=== PATIENT | female | born 1985 | race Caucasian/White ===

== ENCOUNTER → 2020-04-22 10:15 | Outpatient (CLI) | payer OTHER, SELFPAY ==
[2020-04-29 20:34] LABS: Sequential Screen 1st Trimeste SEE SEPARATE REPORT
== END ==
PROVIDERS: PCP Registered Nurse Diabetes Educator
DX: Z34.81 Encounter for supervision of other normal pregnancy, first trimester (principal); Z3A.12 12 weeks gestation of pregnancy; Z36.0 Encounter for antenatal screening for chromosomal anomalies
CPT/HCPCS: 36415; 84163; 84702

== ENCOUNTER → 2020-05-30 10:04 | Outpatient (CLI) | payer OTHER, SELFPAY | PROVIDERS: PCP Registered Nurse Diabetes Educator; Referring Provider Family Medicine; Visit Provider Family Medicine | DX: Z34.90 Encounter for supervision of normal pregnancy, unspecified, unspecified trimester (principal); Z3A.17 17 weeks gestation of pregnancy | CPT/HCPCS: 36415; 82105; 82677; 84702; 86336 ==

== ENCOUNTER → 2020-06-16 09:20 | Outpatient (CLI) | payer OTHER, SELFPAY ==
--- NOTE | 2020-06-16 09:21 | DI.US.S_ITS ---
PROCEDURE: US OB >= 14 WEEKS FETUS INDICATIONS: ANATOMY SCREENING OUTSIDE/PRIOR DATING DATA: Last menstrual period (LMP): 01/28/20. LMP-based estimated date of delivery (MEGHANA): 11/02/20 . First dating scan (date and location): 04/22/20 . Estimated date of delivery (MEGHANA) from first dating scan: 11/03/20 . TECHNIQUE: Real-time scanning was performed of the fetus, with image documentation and biometric measurements. Endovaginal scanning: Not needed. COMPARISON: None. FINDINGS: General: A single living intrauterine gestation is present. Presentation: Cephalic. Placenta: Placental position is anterior , without previa. Amniotic fluid index: 12.3 cm, normal range is 5-24 cm. heart rate: 155 beats per minute. Maternal cervical canal: 3.9 cm long. Normal lower limit is 2.5 cm. biometrics: Biparietal diameter: 4.7 cm, 20 weeks 1 day Head circumference: 17.7 cm, 20 weeks 1 day Abdominal circumference: 14.4 cm, 19 weeks 5 days Femur length: 3.1 cm, 19 weeks 4 days Estimated gestational age from initial scan: 20 weeks 0 days Composite gestational age from present scan: 19 weeks 6 days Estimated weight and percentile: 309 g, 30th percentile Measurement variability for biometric dating: +/- 7 days from 14 weeks to 15 weeks 6 days gestation, +/- 10 days from 16 weeks to 21 weeks 6 days gestation, +/- 2 weeks from 22 weeks to 27 weeks 6 days gestation, +/- 3 weeks for 28 weeks gestation or later. weight reference: 4500 g or EFW >90/95% is considered macrosomia or large for gestational age. EFW <10% is small for gestational age. EFW 5% or less is considered intra-uterine growth restriction. Anatomic survey: Neuro: Ventricles are non-dilated at less than 10 mm. Cisterna magna is normal at 3-11 mm. Cerebellum is normal in size and morphology. Nuchal skin fold: Normal at less than 6 mm between 14-21 weeks gestational age. Face: Nose and lips, facial profile are normal. Spine: No evidence for spina bifida. Heart: 4-chambered heart is present, with normal ventricular outflow tracts. Diaphragm: Diaphragm is intact. Stomach: Left-sided stomach is present. Kidneys: No hydronephrosis. Normal is less than 5 mm in 2nd trimester, less than 7 mm in 3rd trimester. Cord: 3-vessel cord has orthotopic insertion. Bladder: Normal in size. Extremities: All 4 extremities identified. IMPRESSION: Appropriate interval growth, no anomaly seen. Dictated by: Scott Pineda M.D. on 06/16/2020 at 12:09 Approved by: Scott Pineda M.D. on 06/16/2020 at 12:12
== END ==
PROVIDERS: PCP Registered Nurse Diabetes Educator; Referring Provider Family Medicine; Visit Provider Family Medicine
DX: Z36.89 Encounter for other specified antenatal screening (principal); Z3A.19 19 weeks gestation of pregnancy
CPT/HCPCS: 76811

== ENCOUNTER → 2020-08-05 08:45 | Outpatient (CLI) | payer OTHER, SELFPAY ==
[2020-08-05 12:14] LABS: Hematocrit 32.5 % (36-46)
[2020-08-05 12:46] LABS: GTT (PREG) 1 Hour PP 50gm Dose 105 mg/dL (76-139)
== END ==
PROVIDERS: Family Medicine; PCP Registered Nurse Diabetes Educator; Referring Provider Registered Nurse Diabetes Educator; Visit Provider Family Medicine
DX: Z34.90 Encounter for supervision of normal pregnancy, unspecified, unspecified trimester (principal); Z3A.26 26 weeks gestation of pregnancy
CPT/HCPCS: 36415; 82950; 85014; 85018

== ENCOUNTER → 2020-09-12 11:08 | Outpatient (CLI) | payer OTHER, SELFPAY ==
--- NOTE | 2020-09-12 11:09 | DI.US.S_ITS ---
PROCEDURE: US OB LIMITED INDICATIONS: small for dates, growth and fluid OUTSIDE/PRIOR DATING DATA: Last menstrual period (LMP): 01/28/2020. LMP-based estimated date of delivery (MEGHANA): 11/02/2020. First dating scan (date and location): 04/02/2020 at [facility]. Estimated date of delivery (MEGHANA) from first dating scan: 11/03/2020. TECHNIQUE: Real-time scanning was performed of the fetus, with image documentation and biometric measurements. Biophysical profile was also obtained. Endovaginal scanning: Not performed COMPARISON: [facility], OB >= 14 WEEKS FETUS, 06/16/2020, 9:37. [facility] OB <= 14 WEEKS FETUS, 04/22/2020, 10:00. FINDINGS: General: A single living intrauterine gestation is present. Presentation: Cephalic. Placenta: Placental position is anterior , without previa. Amniotic fluid index: 8.4 cm, normal range is 5-24 cm. heart rate: 137 beats per minute. Maternal cervical canal: 3.9 cm long. Normal lower limit is 2.5 cm. biometrics: Biparietal diameter: 31 weeks 0 day Head circumference: 33 weeks 2 days Abdominal circumference: 30 weeks 5 days Femur length: 3 weeks 4 days Estimated gestational age from initial scan: 32 weeks 4 days. Composite gestational age from present scan: 31 weeks 3 days Estimated weight and percentile: 1663 gm; 6% for gestational age. Measurement variability for biometric dating: +/- 7 days from 14 weeks to 15 weeks 6 days gestation, +/- 10 days from 16 weeks to 21 weeks 6 days gestation, +/- 2 weeks from 22 weeks to 27 weeks 6 days gestation, +/- 3 weeks for 28 weeks gestation or later. weight reference: 4500 g or EFW >90/95% is considered macrosomia or large for gestational age. EFW <10% is small for gestational age. EFW 5% or less is considered intra-uterine growth restriction. IMPRESSION: 1. A single living intrauterine gestation redemonstrated. growth is at the low normal range with the weight at the 6th percentile, concerning for developing growth restriction. Recommend clinical follow-up and imaging follow-up as needed. Dictated by: Martin Lundy M.D. on 09/12/2020 at 13:14 Approved by: Martin Lundy M.D. on 09/12/2020 at 13:20
== END ==
PROVIDERS: PCP Registered Nurse Diabetes Educator; Referring Provider Family Medicine; Visit Provider Family Medicine
DX: Z36.4 Encounter for antenatal screening for fetal growth retardation (principal); Z3A.31 31 weeks gestation of pregnancy
CPT/HCPCS: 76815

== ENCOUNTER → 2020-10-06 14:32 | Outpatient (CLI) | payer OTHER, SELFPAY ==
[2020-10-07 13:49] LABS: Strep Grp B PCR NEG for Grp B Strep
== END ==
PROVIDERS: PCP Registered Nurse Diabetes Educator; Visit Provider Family Medicine
DX: Z36.85 Encounter for antenatal screening for Streptococcus B (principal); Z3A.36 36 weeks gestation of pregnancy
CPT/HCPCS: 87653

== ENCOUNTER → 2020-10-06 14:50 | Outpatient (CLI) | payer OTHER, SELFPAY ==
--- NOTE | 2020-10-06 14:50 | DI.US.S_ITS ---
PROCEDURE: US OB LIMITED INDICATIONS: LOW AMNIOTIC FLUID. WILL NEED INDUCTION IF <5CM. OUTSIDE/PRIOR DATING DATA: Last menstrual period (LMP): 01/28/2020. LMP-based estimated date of delivery (MEGHANA): 11/02/2020. First dating scan (date and location): 04/22/2020 . Estimated date of delivery (MEGHANA) from first dating scan: 11/03/2020. TECHNIQUE: Real-time scanning was performed of the fetus, with image documentation and biometric measurements. Biophysical profile was also obtained. Endovaginal scanning: Multiple COMPARISON: [facility], OB >= 14 WEEKS FETUS, 06/16/2020, 9:37. [facility] OB <= 14 WEEKS FETUS, 04/22/2020, 10:00. [facility] OB LIMITED, 09/12/2020, 11:24. FINDINGS: General: A single living intrauterine gestation is present. Presentation: Cephalic. Placenta: Placental position is anterior , without previa. Amniotic fluid index: 6.5 cm, normal range is 5-24 cm; largest pocket 2.7cm. heart rate: 139 beats per minute. Maternal cervical canal: Not well seen IMPRESSION: 1. A single living intrauterine gestation with an estimated gestational age of 36 weeks 0 day based on initial ultrasound. 2. Amniotic fluid index 6.5 cm with the largest pocket 2.7 cm. 3. Cervix not well seen. Dictated by: Martin Lundy M.D. on 10/06/2020 at 16:38 Approved by: Martin Lundy M.D. on 10/06/2020 at 16:43
== END ==
PROVIDERS: PCP Registered Nurse Diabetes Educator; Referring Provider Family Medicine; Visit Provider Family Medicine
DX: O28.8 Other abnormal findings on antenatal screening of mother (principal); Z3A.36 36 weeks gestation of pregnancy; O41.03X0 Oligohydramnios, third trimester, not applicable or unspecified; Z36.85 Encounter for antenatal screening for Streptococcus B
CPT/HCPCS: 59025; 76815; 87653

== ENCOUNTER 2020-10-06 15:14 | Outpatient (CLI) | payer OTHER, SELFPAY ==
--- NOTE | 2020-10-06 16:58 | P.TNLD_ITS ---
Visit Information Visit Information Date of evaluation: 10/06/20 Primary OB Provider: Vernell Luevano Reason for Evaluation: Yes non-stress test non-stress test reason: other (low OMI, growth restriction) Vital Signs Vital Signs: T 36.1 BP 130/81 P 74 PFSH Medical History (Updated 10/06/20 @ 17:00 by Vernell Luevano DO) Fracture of phalanx of left little finger Infertility Oligohydramnios (~08/24/18) Periumbilical hernia (~03/15/19) Poison gaurav (~2019) Pre-eclampsia affecting , antepartum (~08/27/18) Rash, skin (~2017) Right clavicle fracture Sleep deprivation (~04/03/20) (spontaneous vaginal delivery) (~08/25/18) Surgical History History of third molar tooth extraction (~2007) Family History Mother Hyperlipidemia Father Hypertension Hyperlipidemia Grandfather Myocardial infarction Grandmother Dementia Type 2 diabetes mellitus Grandfather Cancer Grandmother CVA (cerebral vascular accident) Social History marital status: household members: spouse and children pets and animals: Yes (X 3 dogs) 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 OMI was 5.2 on 2/5 with EFW 12% but AC 6%. OMI today 6.5 NST reactive. She will follow up with MFM in 4 days for repeat US with dopplers and NST. Discussed in clinic today the need for induction if OMI<5, otherwise at 38 weeks per MFM. OB Disposition: home
== END 2020-10-06 15:53 | disposition home or self-care (01) ==
LOC: OB 10-07 08:58
PROVIDERS: PCP Registered Nurse Diabetes Educator; Referring Provider Family Medicine; Visit Provider Family Medicine
DX: O41.03X0 Oligohydramnios, third trimester, not applicable or unspecified (principal); Z3A.36 36 weeks gestation of pregnancy
CPT/HCPCS: 59025; G0378; G0379

== ENCOUNTER 2020-10-13 13:51 | Outpatient (CLI) | payer OTHER, SELFPAY ==
--- NOTE | 2020-10-13 13:53 | DI.US.S_ITS ---
PROCEDURE: US OB BIOPHYSICAL PROFILE INDICATIONS: LOW AMNIOTIC FLUID OUTSIDE/PRIOR DATING DATA: Last menstrual period (LMP): 01/28/20. LMP-based estimated date of delivery (MEGHANA): 11/02/20 . First dating scan (date and location): 04/22/[address] Clemens . Estimated date of delivery (MEGHANA) from first dating scan: 11/03/20, by Dr. Clemens . TECHNIQUE: Real-time scanning was performed of the fetus for biophysical profile, with image documentation. Color and pulse Doppler interrogation was also performed of the umbilical artery near its insertion into the placenta. Endovaginal scanning: Not needed COMPARISON: None. FINDINGS: General: A single living intrauterine gestation is present. Presentation: Vertex. Placenta: Placental position is anterior , without previa. Amniotic fluid index: 5.9 cm, normal range is 5-24 cm. heart rate: 153 beats per minute. Maternal cervical canal: Not well seen Estimated gestational age from initial scan: 37 weeks 0 days . Biophysical profile: Tone: 2 points. Movement: 2 points. Respiration: 2 points. Largest pocket of fluid: To points. IMPRESSION: Limited study at clinician request, normal biophysical profile. viability is documented. Dictated by: Scott Pineda M.D. on 10/13/2020 at 14:57 Approved by: Scott Pineda M.D. on 10/13/2020 at 14:59
--- NOTE | 2020-10-13 15:22 | PM.OBTRLD ---
Visit Information Visit Information Date of evaluation: 10/13/20 Primary OB Provider: Vernell Luevano On-call OB Provider: Merna Culver Reason for Evaluation: Yes non-stress test non-stress test reason: other (low OMI) Vital Signs Vital Signs: Temperature 36.4? Blood pressure 108/70 Heart rate 84 PFSH Medical History (Updated 10/13/20 @ 16:56 by Vernell Luevano DO) Fracture of phalanx of left little finger Infertility Oligohydramnios (~08/24/18) Periumbilical hernia (~03/15/19) Poison gaurav (~2019) Pre-eclampsia affecting , antepartum (~08/27/18) Rash, skin (~2017) Right clavicle fracture Sleep deprivation (~04/03/20) (spontaneous vaginal delivery) (~08/25/18) Surgical History History of third molar tooth extraction (~2007) Family History Mother Hyperlipidemia Father Hypertension Hyperlipidemia Grandfather Myocardial infarction Grandmother Dementia Type 2 diabetes mellitus Grandfather Cancer Grandmother CVA (cerebral vascular accident) Social History marital status: household members: spouse and children pets and animals: Yes (X 3 dogs) 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[employer])) occupational status: unemployed current occupational exposures/hazards: No special jan needs: No Smoking Status: Never smoker second hand exposure: No alcohol intake: former (pre- : occasional/rare) substance use type: does not use Evaluation Evaluation Baseline heart rate: 140 Variability: Moderate (11-25) monitor accelerations: Present monitor decelerations: Absent Category of Tracing: Reactive Diagnosis, Plan/Disposition Final Diagnosis (1) 37 weeks gestation of : Status: Acute (2) Oligohydramnios antepartum: Status: Acute Plan/Disposition Plan: 35 year old at 37 weeks gestation with decreasing OMI and trend toward growth restriction though stable fluid for the last week. OMI 5.9 today, BPP 8/8 with reactive NST. She will follow up with MFM in 4 days for repeat US with dopplers and NST. Scheduled for induction 10/20/20 with pitocin. OB Disposition: home
== END 2020-10-13 15:12 | disposition home or self-care (01) ==
LOC: LABOR 14:27 → OB 10-14 07:36
PROVIDERS: PCP Registered Nurse Diabetes Educator; Referring Provider Family Medicine; Visit Provider Family Medicine
DX: O41.03X0 Oligohydramnios, third trimester, not applicable or unspecified (principal); Z3A.37 37 weeks gestation of pregnancy
CPT/HCPCS: 59025; 76819; G0378; G0379

== ENCOUNTER 2020-10-17 15:17 | Inpatient (IN) | payer OTHER, SELFPAY ==
[2020-10-17 16:23] LABS: Add Manual Diff / Slide Review NO; Basophils Absolute Auto 100 /uL (0-100); Basophils Percent Auto 0.7 % (0-2); Eosinophils Absolute Auto 100 /uL (0-450); Eosinophils Percent Auto 1.6 % (2-4); Hematocrit 31.1 % (36-46); Hemoglobin 10.7 g/dL (12.0-16.0); Lymphocytes Absolute Auto 1900 /uL (1100-4500); Lymphocytes Percent Auto 20.1 % (25-40); Mean Corpuscular HGB Conc 34.3 % (30-36); Mean Corpuscular Hemoglobin 29.7 PG (26-34); Mean Corpuscular Volume 86.8 fL (80-100); Monocytes Absolute Auto 800 /uL (0-900); Neutrophils Absolute Auto 6700 /uL (1500-7000); Neutrophils Percent Auto 69.6 % (50-75); Platelet Count 194 X10^3/uL (150-400); Red Blood Cell Count 3.59 X10^6/uL (4.0-5.2); Red Cell Distribution Width 13.1 % (11.6-14.8); White Blood Cell Count 9.5 X10^3/uL (4.5-11.0)
[2020-10-17] MEDS: miSOPROStoL 25 MCG TABLET 50 MCG PO ×2 (16:33→20:33)
[2020-10-17 16:36] LABS: COVID19 -Nasal RAPID Negative (Negative)
[2020-10-17 16:57] VITALS: BP 122/82
--- NOTE | 2020-10-17 17:38 | P.HPOB_ITS ---
OB HPI Date/Time Date of admission: 10/17/20 Date Patient Seen: 10/17/20 Time Patient Seen: 16:45 History of Present Condition Chief complaint: EVAL OF LABOR : 2 Para: 1 Estimated Date of Delivery: 11/03/20 Estimated Gestational Age (weeks): 37w4d Narrative: Chantel Valadez is a 35 year old at 37w4d who presented for IOL for oligohydramnios. Pt with uneventful until 33 weeks when she was found to have an OMI of 8 and EFW at the 6th percentile. She was referred to [facility] due to a history of oligohydramnios, with evidence of growth restriction and low OMI this . Ultrasound at [facility] completed 10/03 showed EFW 2298g (12th percentile), with AC 6th percentile. OMI was 5.2. She had normal umbilical dopplers. She received betamethasone 10/03 and 10/04 due to possibility of requiring delivery. Twice weekly AFIs were scheduled. OMI 28 was 6.5, 10/10 was 5.8, and 15 was 5.9. U/S today with [facility] showed oligo, and they recommended induction of labor today. U/S today with [facility] - OMI 2.9 (found in only 2 quadrants), MVP 1.6 BPP 6/8 (0 for fluid) Umbilical artery doppler normal The pt today reports that she is overall feeling well. She denies any vaginal bleeding, cramping/contractions, or LOF. She has been overall feeling well. Indications Indication for induction OB: other (oligohydramnios) History of Present care: good care, initiated at week # (9) and pounds weight gain (33) Dating criteria: LMP confirmed by 1st trimester US Ultrasounds: normal 1st trimester US and normal mid trimester US Medical complications: none Preadmission Labs Blood type: B (+) positive -: Antibody screen: negative, GBS status: negative, HBsAG: negative, HIV: negative and RPR/VDLR: negative -: Chlamydia screen: not detected and Gonorrhea screen: not detected -: Rubella: immune and Varicella: immune HCT: 32.5 Sequential screen: Negative Urine: Mixed Octavia 1 hr GTT: 105 Prior (ies) History: 07/2018 - at 37w5d after IOL for oligohydramnios and pre-eclampsia (diagnosed at IOL) superimposed on gestational HTN (diagnosed around 32 weeks), [id number] male Evaluation Evaluation Baseline heart rate: 150 Variability: Moderate (11-25) monitor accelerations: Present monitor decelerations: Absent Status: Category l Cervical dilation (cm): 1 Cervical effacement (%): 50 station: -2 Laboratory results: Laboratory Tests 10/17/20 10/17/20 10/17/20 16:15 16:15 16:15 WBC 9.5 RBC 3.59 L Hgb 10.7 L Hct 31.1 L MCV 86.8 MCH 29.7 MCHC 34.3 RDW 13.1 Plt Count 194 Neut % (Auto) 69.6 Lymph % (Auto) 20.1 L Rutherford % (Auto) 8.0 Eos % (Auto) 1.6 L Baso % (Auto) 0.7 Neut # (Auto) 6700 Lymph # (Auto) 1900 Rutherford # (Auto) 800 Eos # (Auto) 100 Baso # (Auto) 100 SARS-CoV-2 (PCR) Negative Blood Type B Positive Antibody Screen Negative [facility] Medical History (Updated 10/13/20 @ 16:56 by Vernell Luevano DO) Fracture of phalanx of left little finger Infertility Oligohydramnios (~08/24/18) Periumbilical hernia (~03/15/19) Poison gaurav (~2019) Pre-eclampsia affecting , antepartum (~08/27/18) Rash, skin (~2017) Right clavicle fracture Sleep deprivation (~04/03/20) (spontaneous vaginal delivery) (~08/25/18) Surgical History History of third molar tooth extraction (~2007) Family History Mother Hyperlipidemia Father Hypertension Hyperlipidemia Grandfather Myocardial infarction Grandmother Dementia Type 2 diabetes mellitus Grandfather Cancer Grandmother CVA (cerebral vascular accident) Social History marital status: household members: spouse and children pets and animals: Yes (X 3 dogs) 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[employer])) occupational status: unemployed current occupational exposures/hazards: No special jan needs: No Smoking Status: Never smoker second hand exposure: No alcohol intake: former (pre- : occasional/rare) substance use type: does not use Meds Home Medications and Allergies Home Medications Medication Instructions Recorded Confirmed Type prenat.vits,delvis,aws-oeib-akqlv 1 tab PO DAILY 04/17/20 10/17/20 History cholecalciferol (vitamin D3) 25 5,000 unit PO DAILY cap 04/21/20 10/17/20 History mcg (1,000 unit) capsule Allergies Allergy/AdvReac Type Severity Reaction Status Date / Time adhesive tape AdvReac Intermediate Blows up Verified 10/13/20 13:23 into Rash Exam Vital Signs (past 8 hours): - 10/17/20 16:57 Blood Pressure 122/82 Const General: cooperative, healthy appearing and comfortable Orientation: alert, awake and oriented x3 Resp Effort & Inspection: normal respiratory effort Auscultation: clear to auscultation bilaterally Cardio Rate: regular rate Rhythm: regular rhythm Heart Sounds: S1 normal, S2 normal and no murmurs GI Inspection: non-distended Palpation: soft and No tender Other: gravid Presentation: vertex Estimated Weight (lbs): 5 Extrem General: no clubbing, cyanosis or edema Objective Labs Result Diagrams: 10/17/20 16:15 Labs: Laboratory Results - last 24 hr 10/17/20 10/17/20 10/17/20 16:15 16:15 16:15 WBC 9.5 RBC 3.59 L Hgb 10.7 L Hct 31.1 L MCV 86.8 MCH 29.7 MCHC 34.3 RDW 13.1 Plt Count 194 Neut % (Auto) 69.6 Lymph % (Auto) 20.1 L Rutherford % (Auto) 8.0 Eos % (Auto) 1.6 L Baso % (Auto) 0.7 Neut # (Auto) 6700 Lymph # (Auto) 1900 Rutherford # (Auto) 800 Eos # (Auto) 100 Baso # (Auto) 100 SARS-CoV-2 (PCR) Negative Blood Type B Positive Antibody Screen Negative Assessment and Plan Assessment and Plan Assessment and Plan narrative: Chantel Valadez is a 35 year old at 37w4d who presented for IOL for oligohydramnios. OMI 2.9 today. Goldsmith score currently 6. GBS negative, Rh positive. - Expectant management, anticipate - FHT reassuring - Cytotec now, plan to repeat dose if not in active labor - GBS negative, no prophylaxis indicated - Epidural for pain control when desired
[2020-10-18] MEDS: OXYTOCIN PREMIX 30 UNIT/500 ML PLAST..BAG IV (00:33)
[2020-10-18] MEDS: LACTATED RINGERS 1,000 ML 100 ML IV ×2 (00:33→11:12)
--- NOTE | 2020-10-18 08:40 | PM.OBPNLAB ---
Date/Time Date Patient Seen: 10/18/20 Time Patient Seen: 08:45 Pain Control Pain control: tolerating well Pelvic Exam Dilation (cm): 3 Effacement (%): 50 station: -1 Amniotic membrane status: Intact Contractions Monitor mode: External Pitocin rate (mU/min): 20 Contraction frequency (min): 2 Contraction pattern: Regular Contraction intensity: Moderate Status status: Category l Heart Rate Baseline: 125 Monitor Accelerations: Present Monitor Decelerations: Absent Monitor Variability: Moderate Assessment and Plan Comments: 35yo at 37w5d here for IOL for oligohydramnios. Rh positive, GBS negative. Received cytotec, now on pitocin. Contractions becoming more painful. - Expectant management, anticipate - FHT reassuring - Epidural for pain control when desired - GBS negative, no prophylaxis indicated - Due to timing of epidural for anesthesiology availability and that the pt has been on 20mU pitocin for 3 hours with minimal cervical change, plan to stop pitocin to allow the pt to eat breakfast. Will restart after an hour. Plan to AROM when anesthesiology will be available.
--- NOTE | 2020-10-18 14:17 | PM.OBPNLAB ---
Date/Time Date Patient Seen: 10/18/20 Time Patient Seen: 12:00 Pain Control Pain control: tolerating well Pelvic Exam Dilation (cm): 3 Effacement (%): 50 station: -1 Amniotic membrane status: Ruptured Comments: After informed consent, AROM performed with production of clear fluid Contractions Monitor mode: External Pitocin rate (mU/min): 4 Contraction frequency (min): 4 Contraction pattern: Regular Contraction intensity: Moderate Status status: Category l Heart Rate Baseline: 150 Monitor Accelerations: Present Monitor Decelerations: Absent Monitor Variability: Moderate Assessment and Plan Comments: 35yo at 37w5d here for IOL for oligohydramnios. Rh positive, GBS negative. Received cytotec, now on pitocin. AROM with clear fluid. - Expectant management, anticipate - FHT reassuring - Epidural for pain control now - GBS negative, no prophylaxis indicated - Continue pitocin, titrate as tolerated
--- NOTE | 2020-10-18 17:46 | PM.OBPRVD ---
Events: Oligohydramnios Labor & Delivery Delivery date: 10/18/20 Estimated blood loss (mL): 100 Anesthesia Type: Epidural Complications: None Narrative: PROCEDURE: at 37w4d presented for IOL for oligohydramnios and was admitted to Labor and Delivery. She received cytotec for induction. The patient progressed through the 1st stage over 3.5 hours, with pitocin for augmentation. AROM was performed with production of clear fluid. Pain was controlled with an epidural. During the 2nd stage there were recurrent variable decels with pushing, with good return to baseline between contractions. The patient progressed through the 2nd stage over 1.5 hours and delivered a viable male with APGARs 9/9 at 17:31 via without complications. The baby delivered direct OP. The perineum and vagina were inspected with no lacerations. PREPROCEDURE DIAGNOSIS: Intrauterine at 37w4d Oligohydramnios Small abdominal circumference on 3rd trimester ultrasound, with evidence of growth restriction GBS negative RH positive POSTPROCEDURE DIAGNOSIS: Intrauterine at 37w5d, delivered Same as preprocedure PROCEDURE: INDUCTION: Cytotec LABOR AUGMENTATION: Pitocin, AROM ROM APPEARANCE: Clear BABY A DELIVERY TIME: 17:31 BABY A OUTCOME: Viable BABY A SEX: Male BABY A WEIGHT: [id number] BABY A PRESENTATION: Vertex BABY A POSITION: OA BABY A NUCHAL CORD: Body cord x1 BABY A # CORD VESSELS: 3 BABY A CORD GASES OBTAINED: No PLACENTA DELIVERY TIME: 17:35 PLACENTAL DELIVERY TYPE: Spontaneous PLACENTA APPEARANCE: Intact [place] Baby 1: Infant gender: Male score (1 min): 9 score (5 min): 9
[2020-10-19] MEDS: IBUPROFEN 600 MG TABLET PO ×2 (04:00→10:19)
[2020-10-19] MEDS: ACETAMINOPHEN 325 MG TABLET 650 MG PO (04:00)
[2020-10-19] MEDS: DERMOPLAST SPRAY 20% 60 ML 1 SPRAY TOP (04:00)
[2020-10-19] MEDS: LANOLIN OINT 7 GM 1 APPLIC TOP (08:00)
[2020-10-19] MEDS: DOCUSATE 100 MG CAPSULE PO (08:00)
[2020-10-19] MEDS: PRENATAL VIT,CALC/IRON/FOLIC 1 TABLET 1 TAB PO (08:00)
--- NOTE | 2020-10-19 09:33 | P.DS_ITS ---
Discharge Providers Provider Date of admission: 10/17/20 15:17 Discharge Date: 10/19/20 Primary care physician: SHAKEEL Millan Consults: 10/19/20 17:45 Consult to Light Rail Operator Routine Comment: Discharge provider: Eda Zaman MD Summary Hospital Course Date Patient Seen: 10/19/20 Time Patient Seen: 09:34 Diagnoses: Intrauterine at 37w4d Oligohydramnios Small abdominal circumference on 3rd trimester ultrasound, with evidence of growth restriction GBS negative RH positive Hospital Course: The pt presented for IOL due to oligohydramnios with an OMI of 2.9. She was received cytotec and then pitocin. AROM was performed with clear fluid present. She received an epidural for pain control. The pt progressed to complete and had an uncomplicated of a viable baby boy. There were no lacerations. The pt tolerated delivery well. , there were no complications. At the time of discharge she was voiding, ambulating, and passing flatus without difficulty. Her lochia was decreasing appropriately. She was with good latch. Her pain was well controlled. She will f/u with Dr Luevano, her primary OB, in 6 weeks for check. She desires an IUD for contraception. Peripartum Data Infant Delivery Method: Natural Vaginal Laceration Description: None Episiotomy description: None Procedures: Spontaneous vaginal delivery complications: none 1: Gender: Male Disposition of : home Discharge Diagnosis (1) Oligohydramnios antepartum: Status: Acute (2) 37 weeks gestation of : Status: Acute (3) (spontaneous vaginal delivery): Status: Acute Status at Discharge Cognitive/behavioral status at discharge: oriented Functional status at discharge: independent ambulation Overall status at discharge: patient is progressing back to baseline Time Spent with Patient Time attestation: Total time spent providing and/or coordinating discharge services: Objective Labs Result Diagrams: 10/17/20 16:15 Discharge Plan Discharge Plan Patient Disposition: Home Discharge orders & Medications Prescriptions: New acetaminophen 325 mg Tablet 650 mg PO Q6HR PRN (Reason: Pain, Mild (1-3)) Qty: 30 RF: 0 docusate sodium [DOK] 100 mg Capsule 100 mg PO DAILY Qty: 30 RF: 0 ibuprofen 600 mg Tablet 600 mg PO Q6HR PRN (Reason: Pain, Mild (1-3)) Qty: 30 RF: 0 Continued prenat.vits,delvis,zhk-xagk-uyaey Tablet 1 tab PO DAILY RF: 0 cholecalciferol (vitamin D3) 25 mcg (1,000 unit) capsule 5,000 unit PO DAILY RF: 0 Follow up/Referrals: Shelton Joseph ARNP [Primary Care Provider] - Vernell Luevano DO [Physician] - 6 Weeks Diet/Activity/Treatments Diet: Diet as Tolerated and Regular Skin/Wound/Dressing Care Report to your healthcare provider any signs of infection, such as:: chills, fever, increased pain and unusual drainage Visit Report/Discharge Packet Instructions: DI for Labor and Delivery, Vaginal Visit Report Forms: Patient Portal/API, Stroke Signs & Symptoms Discharge Data Primary Care Provider: Shelton Joseph
[2020-10-19 10:19] VITALS: TEMP 36.8
[2020-10-19] MEDS: CHOLECALCIFEROL (VITAMIN D3) 5,000 UNIT TABLET 5000 UNIT PO (10:19)
[2020-10-19 10:56] LABS: Hematocrit 30.1 % (36-46)
[2020-10-19 13:43] VITALS: BP 118/74; PULSE 98; RESP 17; TEMP 36.8
== END 2020-10-19 17:10 | disposition home or self-care (01) | DRG 807 ==
PROVIDERS: Admitting Provider Family Medicine; PCP Registered Nurse Diabetes Educator; Referring Provider Family Medicine; Visit Provider Family Medicine
DX: O41.03X0 Oligohydramnios, third trimester, not applicable or unspecified (principal); Z37.0 Single live birth; O36.5930 Maternal care for other known or suspected poor fetal growth, third trimester, not applicable or unspecified; Z3A.37 37 weeks gestation of pregnancy; Z20.822 Contact with and (suspected) exposure to COVID-19
CPT/HCPCS: 01967; 36415; 59050; 59200; 59400; 59409; 85014; 85018; 85025; 86850; 86900; 86901; 87635; C9803; G0379; J2590

== ENCOUNTER 2021-05-07 09:45 | Outpatient (RCR) | payer OTHER, SELFPAY ==
--- NOTE | 2021-02-11 16:00 | PT.OPPOC ---
Physical, Occupational & Speech Therapy At [facility] Current Diagnoses Other specified disorders of muscle (02/11/21) Stress incontinence (female) (male) (02/11/21) Cystocele, midline (02/11/21) Visit Care Team Role Provider Type SHAKEEL Millan Primary Care Provider Advanced Metal Framer Specialty: Medical Address: [address] [place] [address], [place], [address] Email: [email or web address] Vernell Luevano DO Attending Provider Physician Referring Provider Specialty: Family Practice Address: [facility], [address], [place], [address] Email: [email or web address] Plan Of Care PT-OP-T Assessment and Plan Start: 02/11/21 07:30 Freq: Status: Active Protocol: Document 02/11/21 14:15 AMB (Rec: 02/14/21 11:30 AMB [email or web address]) Physical Therapy Assessment Rehab Potential Rehabilitation Potential Excellent Evaluation Complexity Number of Personal Factors/Comorbidities 1-2 Number of Body Systems Impaired 1-2 Clinical Presentation at Evaluation Stable Impairments Impairments Strength Goals Two Impairment Strength Short Term Goal (STG) Emilia will be independent with a HEP to strengthen her pelvic floor and TA STG Duration 4 weeks Manager Performance Goal (LTG) Emilia will improve her pelvic floor strength so that she can run at the speed of her choice without pelvic heaviness/incontinence. LTG Duration 8 weeks Assessment Summary Assessment Emilia attends physical therapy with mild cystocele and stress incontinence symptoms. She is very active and needs a very strong pelvic floor and core to return to her active lifestyle without worsening her symptoms. She will benefit from physical therapy to improve her pelvic floor and transversus abdominus strength so she can return to her active lifestyle without pain/incontinence. Physical Therapy Plan Frequency and Duration Frequency of Treatment 1x/Week Duration of Treatment 8 weeks Plan of Care Start Date 02/11/21 Plan of Care End Date 04/08/21 Therapeutic Interventions Therapeutic Interventions Home Exercise Program,Manual Therapy,Neuromuscular Re- education,Self-Care/Home Management,Therapeutic Activities,Therapeutic Exercises Modalities Biofeedback,Electric Stimulation Next Visit Focus/Plan Next Note Type Treatment Note Next Visit Plan Trial progression into standing or stabilization with movement Plan of Care Dates Plan of Care Start Date 02/11/21 Plan of Care End Date 04/08/21 Electronically Signed by: Simona Nunes, PT 02/14/21 [id number] Please Sign and Return: I have reviewed this Plan of Care and certify that the skilled therapy services above are required to meet the patient?s needs. Physician Signature Date Printed Name and Credentials Clinical Instructor Signature Printed Name and Credentials
--- NOTE | 2021-02-11 16:00 | PT.OIE ---
Current Diagnoses Other specified disorders of muscle (02/11/21) Stress incontinence (female) (male) (02/11/21) Cystocele, midline (02/11/21) Past Medical History (Last Updated 12/04/20 @ 08:02 by Vernell Luevano DO) Fracture of phalanx of left little finger Infertility Oligohydramnios (~08/24/18) Periumbilical hernia (~03/15/19) Poison gaurav (~2019) Pre-eclampsia affecting , antepartum (~08/27/18) Rash, skin (~2017) Right clavicle fracture Sleep deprivation (~04/03/20) (spontaneous vaginal delivery) (~08/25/18) Past Surgical History (Last Reviewed 12/04/20 @ 07:55 by Vernell Luevano DO) History of third molar tooth extraction (~2007) Visit Care Team Role Provider Type SHAKEEL Millan Primary Care Provider Advanced Kick Press Operator Specialty: Medical Address: [address] [place] [address], [facility] Email: [email or web address] Vernell Luevano DO Attending Provider Physician Referring Provider Specialty: [facility] Practice Address: [address] [place] [address], [place], [address] Email: [email or web address] Physical Therapy Initial Evaluation PT-OP-A Visit Information Start: 02/11/21 07:30 Freq: Status: Active Protocol: Document 02/11/21 14:15 AMB (Rec: 02/14/21 11:30 AMB [email or web address]) Out-Patient Physical Therapy Visit Information Visit Information Visit Type Initial Evaluation Visit Start Time 14:15 Visit Stop Time 15:00 Total Visit Minutes 45 Visit Number 1 PT-OP-B Current Condition Start: 02/11/21 07:30 Freq: Status: Active Protocol: Document 02/11/21 14:15 AMB (Rec: 02/11/21 14:53 AMB [id number]) Current Condition History of Current Condition Onset Date 10/18/20 Current Complaints pelvic floor weakness s/p vaginal delivery History of Current Condition Baby #2 almost 4 months post . 2 vaginal deliveries, tore with the first, not with the second. [place] 20 [place], no leaking with that, but hasn't gotten up to speed yet and is avoiding hard downhills. 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 Therapy/Recovery PT-OP-C Subjective Start: 02/11/21 07:30 Freq: Status: Active Protocol: Document 02/11/21 14:15 AMB (Rec: 02/14/21 11:30 AMB [email or web address]) Patient Questionnaires Pelvic Pain and Urgency/Frequency Patient Symptom Scale Pelvic Pain Score 5 PT-OP-I Pelvic Floor Start: 02/11/21 07:30 Freq: Status: Active Protocol: Document 02/11/21 14:15 AMB (Rec: 02/14/21 11:30 AMB [email or web address]) Pelvic Floor Assessment Urine Pelvic Floor Surgery No Urinary Symptoms Falling Out Feeling/Heavy Leakage Size Small Leakage Cause Exercise,Sneeze Leaks Per Day only with strong sneeze Voiding Frequency 6/day Nocturia 1 Bowel [place] Stool Chart Type 1-7 4 Prolapse Cystocele Grade 2 Perineal Descent Resting Absent Bearing Present Contraction Ability Voluntary Contraction Moderate Voluntary Relaxation Moderate Manual Muscle Testing Left 3 Manual Muscle Testing Right 3 Manual Muscle Testing Anterior 2 Manual Muscle Testing Posterior 3 Muscle Endurance (Seconds) 5 Number of Quick Contractions In 10 4 Seconds Comments Pelvic Floor Comments Diastasis recti 2 finger widths above umbilicus, 1.5 below PT-OP-T Assessment and Plan Start: 02/11/21 07:30 Freq: Status: Active Protocol: Document 02/11/21 14:15 AMB (Rec: 02/14/21 11:30 AMB [email or web address]) Physical Therapy Assessment Rehab Potential Rehabilitation Potential Excellent Evaluation Complexity Number of Personal Factors/Comorbidities 1-2 Number of Body Systems Impaired 1-2 Clinical Presentation at Evaluation Stable Impairments Impairments Strength Goals Two Impairment Strength Short Term Goal (STG) Emilia will be independent with a HEP to strengthen her pelvic floor and TA STG Duration 4 weeks Shelter Goal (LTG) Emilia will improve her pelvic floor strength so that she can run at the speed of her choice without pelvic heaviness/incontinence. LTG Duration 8 weeks Assessment Summary Assessment Emilia attends physical therapy with mild cystocele and stress incontinence symptoms. She is very active and needs a very strong pelvic floor and core to return to her active lifestyle without worsening her symptoms. She will benefit from physical therapy to improve her pelvic floor and transversus abdominus strength so she can return to her active lifestyle without pain/incontinence. Physical Therapy Plan Frequency and Duration Frequency of Treatment 1x/Week Duration of Treatment 8 weeks Plan of Care Start Date 02/11/21 Plan of Care End Date 04/08/21 Therapeutic Interventions Therapeutic Interventions Home Exercise Program,Manual Therapy,Neuromuscular Re- education,Self-Care/Home Management,Therapeutic Activities,Therapeutic Exercises Modalities Biofeedback,Electric Stimulation Next Visit Focus/Plan Next Note Type Treatment Note Next Visit Plan Trial progression into standing or stabilization with movement
--- NOTE | 2021-02-18 15:23 | PT.OTN ---
Current Diagnoses Other specified disorders of muscle (02/18/21) Stress incontinence (female) (male) (02/18/21) Cystocele, midline (02/18/21) Physical Therapy Treatment Note PT-OP-A Visit Information Start: 02/11/21 07:30 Freq: Status: Active Protocol: Document 02/18/21 14:15 AMB (Rec: 02/18/21 14:45 AMB [id number]) Out-Patient Physical Therapy Visit Information Visit Information Visit Type Treatment Note Visit Start Time 14:15 Visit Stop Time 15:00 Total Visit Minutes 45 Visit Number 2 PT-OP-B Current Condition Start: 02/11/21 07:30 Freq: Status: Active Protocol: Document 02/11/21 14:15 AMB (Rec: 02/11/21 14:53 AMB [id number]) Current Condition History of Current Condition Onset Date 10/18/20 Current Complaints pelvic floor weakness s/p vaginal delivery History of Current Condition Baby #2 almost 4 months post . 2 vaginal deliveries, tore with the first, not with the second. Is running in the [employer] 20 -30 min, no leaking with that, but hasn't gotten up to speed yet and is avoiding hard downhills. 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 Swimming and biking. PT-OP-I Pelvic Floor Start: 02/11/21 07:30 Freq: Status: Active Protocol: Document 02/11/21 14:15 AMB (Rec: 02/14/21 11:30 AMB [email or web address]) Pelvic Floor Assessment Urine Pelvic Floor Surgery No Urinary Symptoms Falling Out Feeling/Heavy Leakage Size Small Leakage Cause Exercise,Sneeze Leaks Per Day only with strong sneeze Voiding Frequency 6/day Nocturia 1 Bowel [place] Stool Chart Type 1-7 4 Prolapse Cystocele Grade 2 Perineal Descent Resting Absent Bearing Present Contraction Ability Voluntary Contraction Moderate Voluntary Relaxation Moderate Manual Muscle Testing Left 3 Manual Muscle Testing Right 3 Manual Muscle Testing Anterior 2 Manual Muscle Testing Posterior 3 Muscle Endurance (Seconds) 5 Number of Quick Contractions In 10 4 Seconds Comments Pelvic Floor Comments Diastasis recti 2 finger widths above umbilicus, 1.5 below PT-OP-Q Treatments Start: 02/11/21 07:30 Freq: Status: Active Protocol: Document 02/18/21 14:15 AMB (Rec: 02/18/21 15:23 AMB [id number]) Therapeutic Exercises Supine Exercises 2 Supine Exercise Name roll in roll out Reps/Minutes more challenged by roll in 1 Supine Exercise Name review long holds and quick flicks Comments don't try to get full contraction with long holds, Neuro Re-Education Treatment Other Activities 1 Details sEMG Comments quick flicks and long holds PT-OP-T Assessment and Plan Start: 02/11/21 07:30 Freq: Status: Active Protocol: Document 02/18/21 14:15 AMB (Rec: 02/18/21 15:23 AMB [id number]) Physical Therapy Assessment Assessment Summary Assessment 12.7 max for quick flicks, long holds avg 18.5, baseline 6. Emilia is doing well. Was able to have good hold wiht 10 second hold with biofeedback. Physical Therapy Plan Next Visit Focus/Plan Next Note Type Treatment Note Next Visit Plan Work into standing, follow up on roll in roll out
--- NOTE | 2021-03-04 15:12 | PT.OTN ---
Current Diagnoses Other specified disorders of muscle (03/04/21) Stress incontinence (female) (male) (03/04/21) Cystocele, midline (03/04/21) Physical Therapy Treatment Note PT-OP-A Visit Information Start: 02/11/21 07:30 Freq: Status: Active Protocol: Document 03/04/21 14:15 AMB (Rec: 03/04/21 15:12 AMB [id number]) Out-Patient Physical Therapy Visit Information Visit Information Visit Type Treatment Note Visit Start Time 14:15 Visit Stop Time 15:00 Total Visit Minutes 45 Visit Number 3 PT-OP-B Current Condition Start: 02/11/21 07:30 Freq: Status: Active Protocol: Document 02/11/21 14:15 AMB (Rec: 02/11/21 14:53 AMB [id number]) Current Condition History of Current Condition Onset Date 10/18/20 Current Complaints pelvic floor weakness s/p vaginal delivery History of Current Condition Baby #2 almost 4 months post . 2 vaginal deliveries, tore with the first, not with the second. Is running in the [employer] 20 -30 min, no leaking with that, but hasn't gotten up to speed yet and is avoiding hard downhills. 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 Did notice some pubic symphysis discomfort with roll outs. PT-OP-I Pelvic Floor Start: 02/11/21 07:30 Freq: Status: Active Protocol: Document 02/11/21 14:15 AMB (Rec: 02/14/21 11:30 AMB [email or web address]) Pelvic Floor Assessment Urine Pelvic Floor Surgery No Urinary Symptoms Falling Out Feeling/Heavy Leakage Size Small Leakage Cause Exercise,Sneeze Leaks Per Day only with strong sneeze Voiding Frequency 6/day Nocturia 1 Bowel [place] Stool Chart Type 1-7 4 Prolapse Cystocele Grade 2 Perineal Descent Resting Absent Bearing Present Contraction Ability Voluntary Contraction Moderate Voluntary Relaxation Moderate Manual Muscle Testing Left 3 Manual Muscle Testing Right 3 Manual Muscle Testing Anterior 2 Manual Muscle Testing Posterior 3 Muscle Endurance (Seconds) 5 Number of Quick Contractions In 10 4 Seconds Comments Pelvic Floor Comments Diastasis recti 2 finger widths above umbilicus, 1.5 below PT-OP-Q Treatments Start: 02/11/21 07:30 Freq: Status: Active Protocol: Document 03/04/21 14:15 AMB (Rec: 03/04/21 15:12 AMB [id number]) Therapeutic Exercises Sitting Exercises 1 Sitting Exercise Name on greek ball Reps/Minutes LAQ, TKE Comments with pelvic floor Standing Exercises 2 Standing Exercise Name long holds with different foot positions Comments WBOS stride stance 1 Standing Exercise Name lunges and squats Reps/Minutes 20 ea Comments PF contract first PT-OP-T Assessment and Plan Start: 02/11/21 07:30 Freq: Status: Active Protocol: Document 03/04/21 14:15 AMB (Rec: 03/04/21 15:12 AMB [id number]) Physical Therapy Assessment Assessment Summary Assessment Emilia did well with squats and lunges, will be seen again in 2 weeks. Encouraged quick flicks and long holds in standing. Physical Therapy Plan Next Visit Focus/Plan Next Note Type Treatment Note Next Visit Plan Work into standing, follow up on roll in roll out
--- NOTE | 2021-03-18 15:10 | PT.OTN ---
Current Diagnoses Other specified disorders of muscle (03/18/21) Stress incontinence (female) (male) (03/18/21) Cystocele, midline (03/18/21) Physical Therapy Treatment Note PT-OP-A Visit Information Start: 02/11/21 07:30 Freq: Status: Active Protocol: Document 03/18/21 14:15 AMB (Rec: 03/18/21 15:09 AMB [id number]) Out-Patient Physical Therapy Visit Information Visit Information Visit Type Treatment Note Visit Start Time 14:15 Visit Stop Time 15:00 Total Visit Minutes 45 Visit Number 4 PT-OP-B Current Condition Start: 02/11/21 07:30 Freq: Status: Active Protocol: Document 02/11/21 14:15 AMB (Rec: 02/11/21 14:53 AMB [id number]) Current Condition History of Current Condition Onset Date 10/18/20 Current Complaints pelvic floor weakness s/p vaginal delivery History of Current Condition Baby #2 almost 4 months post . 2 vaginal deliveries, tore with the first, not with the second. Is running in the [employer] 20 -30 min, no leaking with that, but hasn't gotten up to speed yet and is avoiding hard downhills. 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 PT-OP-I Pelvic Floor Start: 02/11/21 07:30 Freq: Status: Active Protocol: Document 02/11/21 14:15 AMB (Rec: 02/14/21 11:30 AMB [email or web address]) Pelvic Floor Assessment Urine Pelvic Floor Surgery No Urinary Symptoms Falling Out Feeling/Heavy Leakage Size Small Leakage Cause Exercise,Sneeze Leaks Per Day only with strong sneeze Voiding Frequency 6/day Nocturia 1 Bowel [place] Stool Chart Type 1-7 4 Prolapse Cystocele Grade 2 Perineal Descent Resting Absent Bearing Present Contraction Ability Voluntary Contraction Moderate Voluntary Relaxation Moderate Manual Muscle Testing Left 3 Manual Muscle Testing Right 3 Manual Muscle Testing Anterior 2 Manual Muscle Testing Posterior 3 Muscle Endurance (Seconds) 5 Number of Quick Contractions In 10 4 Seconds Comments Pelvic Floor Comments Diastasis recti 2 finger widths above umbilicus, 1.5 below PT-OP-Q Treatments Start: 02/11/21 07:30 Freq: Status: Active Protocol: Document 03/18/21 14:15 AMB (Rec: 03/18/21 15:09 AMB [id number]) Therapeutic Exercises Supine Exercises 4 Supine Exercise Name table top Comments with PF and TA 3 Supine Exercise Name SLR Comments with PF and TA 2 Supine Exercise Name roll in roll out Reps/Minutes more challenged by roll in Standing Exercises 1 Standing Exercise Name lunges and squats Reps/Minutes 20 ea Comments PF contract first Other Exercises cat cow Other Exercise Name with PF, TA 1 Other Exercise Name quadruped UE ext Comments difficult PT-OP-T Assessment and Plan Start: 02/11/21 07:30 Freq: Status: Active Protocol: Document 03/18/21 14:15 AMB (Rec: 03/18/21 15:09 AMB [id number]) Physical Therapy Assessment Goals Two Impairment Strength Short Term Goal (STG) Emilia will be independent with a HEP to strengthen her pelvic floor and TA STG Duration 4 weeks Adjunct Faculty Mathematics Department Goal (LTG) Emilia will improve her pelvic floor strength so that she can run at the speed of her choice without pelvic heaviness/incontinence. LTG Duration 8 weeks Assessment Summary Assessment Added in TA awareness today, challenging with breath awareness nolan in quadruped but easier in supine. Physical Therapy Plan Next Visit Focus/Plan Next Note Type Treatment Note Next Visit Plan Follow up on TA stabilization, and working pelvic floor with breath control
--- NOTE | 2021-04-01 14:23 | PT.OTN ---
Current Diagnoses Other specified disorders of muscle (04/01/21) Stress incontinence (female) (male) (04/01/21) Cystocele, midline (04/01/21) Physical Therapy Treatment Note PT-OP-A Visit Information Start: 02/11/21 07:30 Freq: Status: Active Protocol: Document 04/01/21 13:30 AMB (Rec: 04/01/21 14:15 AMB [id number]) Out-Patient Physical Therapy Visit Information Visit Information Visit Type Treatment Note Visit Start Time 14:15 Visit Stop Time 15:00 Total Visit Minutes 45 Visit Number 5 PT-OP-B Current Condition Start: 02/11/21 07:30 Freq: Status: Active Protocol: Document 02/11/21 14:15 AMB (Rec: 02/11/21 14:53 AMB [id number]) Current Condition History of Current Condition Onset Date 10/18/20 Current Complaints pelvic floor weakness s/p vaginal delivery History of Current Condition Baby #2 almost 4 months post . 2 vaginal deliveries, tore with the first, not with the second. Is running in the [place] 20 -30 min, no leaking with that, but hasn't gotten up to speed yet and is avoiding hard downhills. 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 She is hoping to be able to trail run the [place] in a year. PT-OP-I Pelvic Floor Start: 02/11/21 07:30 Freq: Status: Active Protocol: Document 02/11/21 14:15 AMB (Rec: 02/14/21 11:30 AMB [email or web address]) Pelvic Floor Assessment Urine Pelvic Floor Surgery No Urinary Symptoms Falling Out Feeling/Heavy Leakage Size Small Leakage Cause Exercise,Sneeze Leaks Per Day only with strong sneeze Voiding Frequency 6/day Nocturia 1 Bowel [place] Stool Chart Type 1-7 4 Prolapse Cystocele Grade 2 Perineal Descent Resting Absent Bearing Present Contraction Ability Voluntary Contraction Moderate Voluntary Relaxation Moderate Manual Muscle Testing Left 3 Manual Muscle Testing Right 3 Manual Muscle Testing Anterior 2 Manual Muscle Testing Posterior 3 Muscle Endurance (Seconds) 5 Number of Quick Contractions In 10 4 Seconds Comments Pelvic Floor Comments Diastasis recti 2 finger widths above umbilicus, 1.5 below PT-OP-Q Treatments Start: 02/11/21 07:30 Freq: Status: Active Protocol: Document 04/01/21 13:30 AMB (Rec: 04/02/21 14:20 AMB [email or web address]) Therapeutic Exercises Standing Exercises 4 Standing Exercise Name forward lunges Resistance 10# then 20# Reps/Minutes 5 min Comments 20# was difficult 2 Standing Exercise Name long holds with different foot positions Comments WBOS stride stance 1 Standing Exercise Name lunges and squats Reps/Minutes 20 ea Comments PF contract first Other Exercises 2 Other Exercise Name plank vs pushup Comments can plank for 15 seconds before bulging cat cow Other Exercise Name with PF, TA 1 Other Exercise Name quadruped UE ext Comments difficult PT-OP-T Assessment and Plan Start: 02/11/21 07:30 Freq: Status: Active Protocol: Document 04/01/21 13:30 AMB (Rec: 04/01/21 14:15 AMB [id number]) Physical Therapy Assessment Goals Two Impairment Strength Short Term Goal (STG) Emilia will be independent with a HEP to strengthen her pelvic floor and TA STG Duration 4 weeks Detention Goal (LTG) Emilia will improve her pelvic floor strength so that she can run at the speed of her choice without pelvic heaviness/incontinence. LTG Duration 8 weeks Assessment Summary Assessment Emilia is doing well but still feels like if she were to jump or cut she would leak. Discussed return to exercise at length today and she appears to have a good understanding. Physical Therapy Plan Next Visit Focus/Plan Next Note Type Treatment Note Next Visit Plan Progress return to exercise
--- NOTE | 2021-04-08 15:15 | PT.OTN ---
Current Diagnoses Other specified disorders of muscle (04/08/21) Stress incontinence (female) (male) (04/08/21) Cystocele, midline (04/08/21) Physical Therapy Treatment Note PT-OP-A Visit Information Start: 02/11/21 07:30 Freq: Status: Active Protocol: Document 04/08/21 14:15 AMB (Rec: 04/08/21 14:55 AMB [id number]) Out-Patient Physical Therapy Visit Information Visit Information Visit Type Treatment Note Visit Start Time 14:15 Visit Stop Time 15:00 Total Visit Minutes 45 Visit Number 6 PT-OP-B Current Condition Start: 02/11/21 07:30 Freq: Status: Active Protocol: Document 02/11/21 14:15 AMB (Rec: 02/11/21 14:53 AMB [id number]) Current Condition History of Current Condition Onset Date 10/18/20 Current Complaints pelvic floor weakness s/p vaginal delivery History of Current Condition Baby #2 almost 4 months post . 2 vaginal deliveries, tore with the first, not with the second. Is running in the [place] 20 -30 min, no leaking with that, but hasn't gotten up to speed yet and is avoiding hard downhills. 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 and pushed a stroller up a hill and felt good with both of those things. Was sore in her legs after last treatment but felt good in her pelvic floor . PT-OP-I Pelvic Floor Start: 02/11/21 07:30 Freq: Status: Active Protocol: Document 02/11/21 14:15 AMB (Rec: 02/14/21 11:30 AMB [email or web address]) Pelvic Floor Assessment Urine Pelvic Floor Surgery No Urinary Symptoms Falling Out Feeling/Heavy Leakage Size Small Leakage Cause Exercise,Sneeze Leaks Per Day only with strong sneeze Voiding Frequency 6/day Nocturia 1 Bowel [place] Stool Chart Type 1-7 4 Prolapse Cystocele Grade 2 Perineal Descent Resting Absent Bearing Present Contraction Ability Voluntary Contraction Moderate Voluntary Relaxation Moderate Manual Muscle Testing Left 3 Manual Muscle Testing Right 3 Manual Muscle Testing Anterior 2 Manual Muscle Testing Posterior 3 Muscle Endurance (Seconds) 5 Number of Quick Contractions In 10 4 Seconds Comments Pelvic Floor Comments Diastasis recti 2 finger widths above umbilicus, 1.5 below PT-OP-Q Treatments Start: 02/11/21 07:30 Freq: Status: Active Protocol: Document 04/08/21 14:15 AMB (Rec: 04/08/21 15:15 AMB [email or web address]) Cardio Equipment Elliptical Duration (Minutes) 4 Resistance 5 Therapeutic Exercises Sitting Exercises 1 Sitting Exercise Name alternating LE and UE ext with TA and pelvic floor Standing Exercises 3 Standing Exercise Name step ups 8 forward Reps/Minutes 2 min 4 Standing Exercise Name forward lunges Resistance 10# then 20# Reps/Minutes 5 min Comments 20# was difficult 1 Standing Exercise Name lunges and squats Reps/Minutes 20 ea Comments PF contract first PT-OP-T Assessment and Plan Start: 02/11/21 07:30 Freq: Status: Active Protocol: Document 04/08/21 14:15 AMB (Rec: 04/08/21 14:55 AMB [id number]) Physical Therapy Assessment Goals Two Impairment Strength Short Term Goal (STG) Emilia will be independent with a HEP to strengthen her pelvic floor and TA STG Duration MET Care Home Goal (LTG) Emilia will improve her pelvic floor strength so that she can run at the speed of her choice without pelvic heaviness/incontinence. LTG Duration 8 weeks Assessment Summary Assessment Emilia is tolerating an increase in exercise well. Have not returned to running or cutting or jumping yet. Physical Therapy Plan Frequency and Duration Frequency of Treatment 1x/Week Duration of Treatment 8 weeks Plan of Care Start Date 04/08/21 Plan of Care End Date 06/03/21 Therapeutic Interventions Therapeutic Interventions Home Exercise Program,Manual Therapy,Neuromuscular Re- education,Self-Care/Home Management,Therapeutic Activities,Therapeutic Exercises Modalities Biofeedback,Electric Stimulation Next Visit Focus/Plan Next Note Type Treatment Note Next Visit Plan Progress return to exercise
--- NOTE | 2021-04-08 15:16 | PT.OPPOC ---
Physical, Occupational & Speech Therapy At [facility] Current Diagnoses Other specified disorders of muscle (04/08/21) Stress incontinence (female) (male) (04/08/21) Cystocele, midline (04/08/21) Visit Care Team Role Provider Type SHAKEEL Millan Primary Care Provider Advanced Credit Clerk Specialty: Medical Address: [address] [place] [address], [place], [address] Email: [email or web address] Vernell Luevano DO Attending Provider Physician Referring Provider Specialty: Family Practice Address: [facility], [address], [place], [address] Email: [email or web address] Plan Of Care PT-OP-T Assessment and Plan Start: 02/11/21 07:30 Freq: Status: Active Protocol: Document 04/08/21 14:15 AMB (Rec: 04/08/21 14:55 AMB [id number]) Physical Therapy Assessment Goals Two Impairment Strength Short Term Goal (STG) Emilia will be independent with a HEP to strengthen her pelvic floor and TA STG Duration MET Detention Goal (LTG) Emilia will improve her pelvic floor strength so that she can run at the speed of her choice without pelvic heaviness/incontinence. LTG Duration 8 weeks Assessment Summary Assessment Emilia is tolerating an increase in exercise well. Have not returned to running or cutting or jumping yet. That is what we will be working on progressing with continued PT. Physical Therapy Plan Frequency and Duration Frequency of Treatment 1x/Week Duration of Treatment 8 weeks Plan of Care Start Date 04/08/21 Plan of Care End Date 06/03/21 Therapeutic Interventions Therapeutic Interventions Home Exercise Program,Manual Therapy,Neuromuscular Re- education,Self-Care/Home Management,Therapeutic Activities,Therapeutic Exercises Modalities Biofeedback,Electric Stimulation Next Visit Focus/Plan Next Note Type Treatment Note Next Visit Plan Progress return to exercise Plan of Care Dates Plan of Care Start Date 04/08/21 Plan of Care End Date 06/03/21 Electronically Signed by: Simona Nunes, PT 04/08/21 1516 Please Sign and Return: I have reviewed this Plan of Care and certify that the skilled therapy services above are required to meet the patient?s needs. Physician Signature Date Printed Name and Credentials Clinical Instructor Signature Printed Name and Credentials
--- NOTE | 2021-04-30 15:25 | PT.OTN ---
Current Diagnoses Other specified disorders of muscle (04/30/21) Stress incontinence (female) (male) (04/30/21) Cystocele, midline (04/30/21) Physical Therapy Treatment Note PT-OP-A Visit Information Start: 02/11/21 07:30 Freq: Status: Active Protocol: Document 04/30/21 12:45 AMB (Rec: 04/30/21 13:04 AMB [id number]) Out-Patient Physical Therapy Visit Information Visit Information Visit Type Treatment Note Visit Start Time 12:45 Visit Stop Time 13:30 Total Visit Minutes 45 Visit Number 7 PT-OP-B Current Condition Start: 02/11/21 07:30 Freq: Status: Active Protocol: Document 02/11/21 14:15 AMB (Rec: 02/11/21 14:53 AMB [id number]) Current Condition History of Current Condition Onset Date 10/18/20 Current Complaints pelvic floor weakness s/p vaginal delivery History of Current Condition Baby #2 almost 4 months post . 2 vaginal deliveries, tore with the first, not with the second. Is running in the [place] 20 -30 min, no leaking with that, but hasn't gotten up to speed yet and is avoiding hard downhills. 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 Like getting poked, not sure why it happens. PT-OP-I Pelvic Floor Start: 02/11/21 07:30 Freq: Status: Active Protocol: Document 02/11/21 14:15 AMB (Rec: 02/14/21 11:30 AMB [email or web address]) Pelvic Floor Assessment Urine Pelvic Floor Surgery No Urinary Symptoms Falling Out Feeling/Heavy Leakage Size Small Leakage Cause Exercise,Sneeze Leaks Per Day only with strong sneeze Voiding Frequency 6/day Nocturia 1 Bowel [place] Stool Chart Type 1-7 4 Prolapse Cystocele Grade 2 Perineal Descent Resting Absent Bearing Present Contraction Ability Voluntary Contraction Moderate Voluntary Relaxation Moderate Manual Muscle Testing Left 3 Manual Muscle Testing Right 3 Manual Muscle Testing Anterior 2 Manual Muscle Testing Posterior 3 Muscle Endurance (Seconds) 5 Number of Quick Contractions In 10 4 Seconds Comments Pelvic Floor Comments Diastasis recti 2 finger widths above umbilicus, 1.5 below PT-OP-Q Treatments Start: 02/11/21 07:30 Freq: Status: Active Protocol: Document 04/30/21 12:45 AMB (Rec: 04/30/21 15:24 AMB [email or web address]) Cardio Equipment Elliptical Duration (Minutes) 5 Resistance 5 Therapeutic Exercises Supine Exercises 4 Supine Exercise Name table top Comments with PF and TA, added lowering one leg at a time 3 Supine Exercise Name SLR Comments with PF and TA 2 Supine Exercise Name roll in roll out Reps/Minutes more challenged by roll in Sidelying Exercises 2 Sidelying Exercise Name modified side plank Reps/Minutes 20x2 Comments with visual and palpationcheck for coning 1 Sidelying Exercise Name hip abd Reps/Minutes 1x10 Standing Exercises 1 Standing Exercise Name lunges and squats Reps/Minutes 20 ea Comments PF contract first Other Exercises 4 Other Exercise Name adductor stretch Reps/Minutes 30x2 3 Other Exercise Name downward dog Comments cues not to go into full shoulder extension 2 Other Exercise Name plank vs pushup Comments can plank for 15 seconds before bulging 1 Other Exercise Name quadruped UE flex and LE ext Reps/Minutes 10 Comments partial range only PT-OP-T Assessment and Plan Start: 02/11/21 07:30 Freq: Status: Active Protocol: Document 04/30/21 12:45 AMB (Rec: 04/30/21 15:24 AMB [email or web address]) Physical Therapy Assessment Goals Two Impairment Strength Short Term Goal (STG) Emilia will be independent with a HEP to strengthen her pelvic floor and TA STG Duration MET Station Examiner Goal (LTG) Emilia will improve her pelvic floor strength so that she can run at the speed of her choice without pelvic heaviness/incontinence. 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 Physical Therapy Plan Next Visit Focus/Plan Next Note Type Treatment Note Next Visit Plan Progress return to exercise
--- NOTE | 2021-05-07 15:44 | PT.OTN ---
Current Diagnoses Other specified disorders of muscle (05/07/21) Stress incontinence (female) (male) (05/07/21) Cystocele, midline (05/07/21) Physical Therapy Treatment Note PT-OP-A Visit Information Start: 02/11/21 07:30 Freq: Status: Active Protocol: Document 05/07/21 09:45 AMB (Rec: 05/07/21 10:38 AMB [id number]) Out-Patient Physical Therapy Visit Information Visit Information Visit Type Treatment Note Visit Start Time 09:45 Visit Stop Time 10:30 Total Visit Minutes 45 Visit Number 8 PT-OP-B Current Condition Start: 02/11/21 07:30 Freq: Status: Active Protocol: Document 02/11/21 14:15 AMB (Rec: 02/11/21 14:53 AMB [id number]) Current Condition History of Current Condition Onset Date 10/18/20 Current Complaints pelvic floor weakness s/p vaginal delivery History of Current Condition Baby #2 almost 4 months post . 2 vaginal deliveries, tore with the first, not with the second. Is running in the [employer] 20 -30 min, no leaking with that, but hasn't gotten up to speed yet and is avoiding hard downhills. 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 PT-OP-I Pelvic Floor Start: 02/11/21 07:30 Freq: Status: Active Protocol: Document 02/11/21 14:15 AMB (Rec: 02/14/21 11:30 AMB [email or web address]) Pelvic Floor Assessment Urine Pelvic Floor Surgery No Urinary Symptoms Falling Out Feeling/Heavy Leakage Size Small Leakage Cause Exercise,Sneeze Leaks Per Day only with strong sneeze Voiding Frequency 6/day Nocturia 1 Bowel [place] Stool Chart Type 1-7 4 Prolapse Cystocele Grade 2 Perineal Descent Resting Absent Bearing Present Contraction Ability Voluntary Contraction Moderate Voluntary Relaxation Moderate Manual Muscle Testing Left 3 Manual Muscle Testing Right 3 Manual Muscle Testing Anterior 2 Manual Muscle Testing Posterior 3 Muscle Endurance (Seconds) 5 Number of Quick Contractions In 10 4 Seconds Comments Pelvic Floor Comments Diastasis recti 2 finger widths above umbilicus, 1.5 below PT-OP-Q Treatments Start: 02/11/21 07:30 Freq: Status: Active Protocol: Document 05/07/21 09:45 AMB (Rec: 05/07/21 15:43 AMB [email or web address]) Therapeutic Exercises Supine Exercises 4 Supine Exercise Name table top Comments with PF and TA, added lowering one leg at a time 3 Supine Exercise Name SLR Comments with PF and TA Standing Exercises 2 Standing Exercise Name plyos Comments gentle jumping jacks and cross countries PT-OP-T Assessment and Plan Start: 02/11/21 07:30 Freq: Status: Active Protocol: Document 05/07/21 09:45 AMB (Rec: 05/07/21 10:38 AMB [id number]) Physical Therapy Assessment Goals Two Impairment Strength Short Term Goal (STG) Emilia will be independent with a HEP to strengthen her pelvic floor and TA STG Duration MET Horn Player Goal (LTG) Emilia will improve her pelvic floor strength so that she can run at the speed of her choice without pelvic heaviness/incontinence. 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 She was able to tolerate gentle plyometrics without any symptoms and has a good understanding of how to continue to progress her exercises. Physical Therapy Plan Discharge Physical Therapy Discharge Reasons Goals Met
== END 2021-05-08 10:05 | disposition home or self-care (01) ==
LOC: PHYS 09:45
PROVIDERS: PCP Registered Nurse Diabetes Educator; Referring Provider Family Medicine; Visit Provider Family Medicine
DX: M62.89 Other specified disorders of muscle (principal); N81.11 Cystocele, midline; N39.3 Stress incontinence (female) (male)
CPT/HCPCS: 97110; 97112; 97161

== ENCOUNTER 2021-09-08 08:15 | Outpatient (RCR) | payer OTHER, SELFPAY ==
--- NOTE | 2021-07-03 09:16 | PT.OIE ---
Current Diagnoses Other specified disorders of muscle (07/03/21) Past Medical History (Last Reviewed 04/14/21 @ 09:26 by Vernell Luevano DO) Fracture of phalanx of left little finger Infertility Oligohydramnios (~08/24/18) Periumbilical hernia (~03/15/19) Poison gaurav (~2019) Pre-eclampsia affecting , antepartum (~08/27/18) Rash, skin (~2017) Right clavicle fracture Sleep deprivation (~04/03/20) (spontaneous vaginal delivery) (~08/25/18) Past Surgical History (Last Reviewed 04/14/21 @ 09:26 by Vernell Luevano DO) History of third molar tooth extraction (~2007) Visit Care Team Role Provider Type SHAKEEL Millan Family Provider Advanced Missile Facilities Repairer Primary Care Provider Specialty: Medical Address: [address] [place] [address] Email: [email or web address] Vernell Luevano DO Attending Provider Physician Referring Provider Specialty: Family Practice Address: [address] [place] [address], [facility] Email: [email or web address] Physical Therapy Initial Evaluation PT-OP-A Visit Information Start: 07/02/21 10:45 Freq: Status: Active Protocol: Document 07/03/21 07:30 AMB (Rec: 07/03/21 09:16 AMB [email or web address]) Out-Patient Physical Therapy Visit Information Visit Information Visit Type Initial Evaluation Visit Start Time 07:30 Visit Stop Time 08:15 Total Visit Minutes 45 Visit Number 1 PT-OP-B Current Condition Start: 07/02/21 10:45 Freq: Status: Active Protocol: Document 07/03/21 07:30 AMB (Rec: 07/03/21 09:16 AMB [email or web address]) Current Condition History of Current Condition Onset Date 8 months ago Current Complaints Pelvic heaviness History of Current Condition Emilia is , who is well known to this therapist. She was doing well, but then one month ago ran down hill in a sprint after her dog who got off the leash. She felt pain and heaviness like something was coming out of her vagina. The next day she played pickleball and the heaviness increased. Since then she has been afraid to exercise due to the feeling of continued discomfort. Discomfort with intercourse. Has been trying to do quick flicks and long holds 2x/day. Current Functional Impairments (Reported) Functional Limitations- ADL's limited in exercise due to prolapse PT-OP-I Pelvic Floor Start: 07/02/21 10:45 Freq: Status: Active Protocol: Document 07/03/21 07:30 AMB (Rec: 07/03/21 09:16 AMB [email or web address]) Pelvic Floor Assessment Urine Pelvic Floor Surgery No Urinary Symptoms Falling Out Feeling/Heavy Bowel Other Bowel Symptoms denies constipation Prolapse Cystocele Grade 2 Rectocele Grade 1 Perineal Descent Resting Present Bearing Present Contraction Ability Voluntary Contraction Moderate Voluntary Relaxation Moderate Manual Muscle Testing Left 3 Manual Muscle Testing Right 3 Manual Muscle Testing Anterior 2 Manual Muscle Testing Posterior 3 Muscle Endurance (Seconds) 8 Number of Quick Contractions In 10 4 Seconds Comments Pelvic Floor Comments cues for levator PT-OP-Q Treatments Start: 07/02/21 10:45 Freq: Status: Active Protocol: Document 07/03/21 07:30 AMB (Rec: 07/03/21 09:16 AMB [email or web address]) Therapeutic Exercises Supine Exercises 1 Supine Exercise Name quick flicks and long holds Comments with legs elevated PT-OP-T Assessment and Plan Start: 07/02/21 10:45 Freq: Status: Active Protocol: Document 07/03/21 07:30 AMB (Rec: 07/03/21 09:16 AMB [email or web address]) Physical Therapy Assessment Rehab Potential Rehabilitation Potential Good Evaluation Complexity Number of Personal Factors/Comorbidities 0 Number of Body Systems Impaired 1-2 Clinical Presentation at Evaluation Stable Impairments Impairments Functional Activities,Strength Goals Two Impairment Prolapse Short Term Goal (STG) Emilia will perform a HEP that includes gentle plyometrics without pelvic pain or heaviness. STG Duration 4 weeks Mcfp Goal (LTG) Emilia will go for a run without a feeling of pelvic pain or heaviness. LTG Duration 8 weeks One Impairment Strength Short Term Goal (STG) Emilia will improve her pelvic floor strength to 4/5. STG Duration 4 weeks Mcfp Goal (LTG) Emilia will contract her pelvic floor for 10 seconds in standing to show improved pelvic floor strength. LTG Duration 8 weeks Assessment Summary Assessment Emilia does continue to have prolapse and is more symptomatic now than she was previously. Encouraged her that this is just a flare up and that we will continue to strengthen her pelvic floor but that she should be more consistent with gravity assisted kegels for symptom management. Also discussed use of tampons or could consider getting a pessary if symptoms do not resolve, but that they should. Physical Therapy Plan Frequency and Duration Frequency of Treatment 1x/Week Duration of Treatment 12 weeks Plan of Care Start Date 07/03/21 Plan of Care End Date 09/25/21 Therapeutic Interventions Therapeutic Interventions Home Exercise Program,Manual Therapy,Neuromuscular Re- education,Self-Care/Home Management,Therapeutic Activities,Therapeutic Exercises Modalities Biofeedback,Electric Stimulation Next Visit Focus/Plan Next Note Type Treatment Note
--- NOTE | 2021-07-03 09:17 | PT.OPPOC ---
Physical, Occupational & Speech Therapy At [facility] Current Diagnoses Other specified disorders of muscle (07/03/21) Visit Care Team Role Provider Type SHAKEEL Millan Family Provider Advanced Applications Packager Primary Care Provider Specialty: Medical Address: [address] [place] [address], [id number] Email: [email or web address] Vernell Luevano DO Attending Provider Physician Referring Provider Specialty: Family Practice Address: [address] [place] [address], [facility], [place], [address] Email: [email or web address] Plan Of Care PT-OP-T Assessment and Plan Start: 07/02/21 10:45 Freq: Status: Active Protocol: Document 07/03/21 07:30 AMB (Rec: 07/03/21 09:16 AMB [email or web address]) Physical Therapy Assessment Rehab Potential Rehabilitation Potential Good Evaluation Complexity Number of Personal Factors/Comorbidities 0 Number of Body Systems Impaired 1-2 Clinical Presentation at Evaluation Stable Impairments Impairments Functional Activities,Strength Goals Two Impairment Prolapse Short Term Goal (STG) Emilia will perform a HEP that includes gentle plyometrics without pelvic pain or heaviness. STG Duration 4 weeks Pool Hand Goal (LTG) Emilia will go for a run without a feeling of pelvic pain or heaviness. LTG Duration 8 weeks One Impairment Strength Short Term Goal (STG) Emilia will improve her pelvic floor strength to 4/5. STG Duration 4 weeks Correction Goal (LTG) Emilia will contract her pelvic floor for 10 seconds in standing to show improved pelvic floor strength. LTG Duration 8 weeks Assessment Summary Assessment Emilia does continue to have prolapse and is more symptomatic now than she was previously. Encouraged her that this is just a flare up and that we will continue to strengthen her pelvic floor but that she should be more consistent with gravity assisted kegels for symptom management. Also discussed use of tampons or could consider getting a pessary if symptoms do not resolve, but that they should. Physical Therapy Plan Frequency and Duration Frequency of Treatment 1x/Week Duration of Treatment 12 weeks Plan of Care Start Date 07/03/21 Plan of Care End Date 09/25/21 Therapeutic Interventions Therapeutic Interventions Home Exercise Program,Manual Therapy,Neuromuscular Re- education,Self-Care/Home Management,Therapeutic Activities,Therapeutic Exercises Modalities Biofeedback,Electric Stimulation Next Visit Focus/Plan Next Note Type Treatment Note Plan of Care Dates Plan of Care Start Date 07/03/21 Plan of Care End Date 09/25/21 Electronically Signed by: Simona Nunes, PT 07/03/21 0917 Please Sign and Return: I have reviewed this Plan of Care and certify that the skilled therapy services above are required to meet the patient?s needs. Physician Signature Date Printed Name and Credentials Clinical Instructor Signature Printed Name and Credentials
--- NOTE | 2021-07-15 08:27 | PT.OTN ---
Current Diagnoses Other specified disorders of muscle (07/15/21) Physical Therapy Treatment Note PT-OP-A Visit Information Start: 07/02/21 10:45 Freq: Status: Active Protocol: Document 07/15/21 07:30 AMB (Rec: 07/15/21 08:27 AMB [id number]) Out-Patient Physical Therapy Visit Information Visit Information Visit Type Treatment Note Visit Start Time 07:30 Visit Stop Time 08:15 Total Visit Minutes 45 Visit Number 2 PT-OP-B Current Condition Start: 07/02/21 10:45 Freq: Status: Active Protocol: Document 07/03/21 07:30 AMB (Rec: 07/03/21 09:16 AMB [email or web address]) Current Condition History of Current Condition Onset Date 8 months ago Current Complaints Pelvic heaviness History of Current Condition Emiila is , who is well known to this therapist. She was doing well, but then one month ago ran down hill in a sprint after her dog who got off the leash. She felt pain and heaviness like something was coming out of her vagina. The next day she played pickleball and the heaviness increased. Since then she has been afraid to exercise due to the feeling of continued discomfort. Discomfort with intercourse. Has been trying to do quick flicks and long holds 2x/day. Current Functional Impairments (Reported) Functional Limitations- ADL's limited in exercise due to prolapse PT-OP-C Subjective Start: 07/02/21 10:45 Freq: Status: Active Protocol: Document 07/15/21 07:30 AMB (Rec: 07/15/21 08:27 AMB [id number]) OP-PT Subjective Patient Comments Patient Comments Pt has been doing exercises 3x /day. PT-OP-I Pelvic Floor Start: 07/02/21 10:45 Freq: Status: Active Protocol: Document 07/03/21 07:30 AMB (Rec: 07/03/21 09:16 AMB [email or web address]) Pelvic Floor Assessment Urine Pelvic Floor Surgery No Urinary Symptoms Falling Out Feeling/Heavy Bowel Other Bowel Symptoms denies constipation Prolapse Cystocele Grade 2 Rectocele Grade 1 Perineal Descent Resting Present Bearing Present Contraction Ability Voluntary Contraction Moderate Voluntary Relaxation Moderate Manual Muscle Testing Left 3 Manual Muscle Testing Right 3 Manual Muscle Testing Anterior 2 Manual Muscle Testing Posterior 3 Muscle Endurance (Seconds) 8 Number of Quick Contractions In 10 4 Seconds Comments Pelvic Floor Comments cues for levator PT-OP-Q Treatments Start: 07/02/21 10:45 Freq: Status: Active Protocol: Document 07/15/21 07:30 AMB (Rec: 07/15/21 08:27 AMB [id number]) Cardio Equipment Treadmill Duration (Minutes) 7 Speed 2.2 Incline 3 Gym Equipment Shuttle Recovery plyos Details 12# double leg Reps/Time 3 min Therapeutic Exercises Supine Exercises 2 Supine Exercise Name supine biking Reps/Minutes 10 1 Supine Exercise Name quick flicks and long holds Comments with legs elevated Prone Exercises 1 Prone Exercise Name modified plank Reps/Minutes forearms and knees Other Exercises 1 Other Exercise Name bird dog Reps/Minutes 2x10 PT-OP-T Assessment and Plan Start: 07/02/21 10:45 Freq: Status: Active Protocol: Document 07/15/21 07:30 AMB (Rec: 07/15/21 08:27 AMB [id number]) Physical Therapy Assessment Assessment Summary Assessment Emilia is doing well, but has to be very mindful with her exercises. She was encouraged in a gentle progression of her exercises. Physical Therapy Plan Next Visit Focus/Plan Next Note Type Treatment Note
--- NOTE | 2021-07-22 10:28 | PT.OTN ---
Current Diagnoses Other specified disorders of muscle (07/22/21) Physical Therapy Treatment Note PT-OP-A Visit Information Start: 07/02/21 10:45 Freq: Status: Active Protocol: Document 07/22/21 07:30 AMB (Rec: 07/22/21 08:09 AMB [id number]) Out-Patient Physical Therapy Visit Information Visit Information Visit Type Treatment Note Visit Start Time 07:30 Visit Stop Time 08:15 Total Visit Minutes 45 Visit Number 3 PT-OP-B Current Condition Start: 07/02/21 10:45 Freq: Status: Active Protocol: Document 07/03/21 07:30 AMB (Rec: 07/03/21 09:16 AMB [email or web address]) Current Condition History of Current Condition Onset Date 8 months ago Current Complaints Pelvic heaviness History of Current Condition Emilia is , who is well known to this therapist. She was doing well, but then one month ago ran down hill in a sprint after her dog who got off the leash. She felt pain and heaviness like something was coming out of her vagina. The next day she played pickleball and the heaviness increased. Since then she has been afraid to exercise due to the feeling of continued discomfort. Discomfort with intercourse. Has been trying to do quick flicks and long holds 2x/day. Current Functional Impairments (Reported) Functional Limitations- ADL's limited in exercise due to prolapse PT-OP-C Subjective Start: 07/02/21 10:45 Freq: Status: Active Protocol: Document 07/22/21 07:30 AMB (Rec: 07/22/21 08:09 AMB [id number]) OP-PT Subjective Patient Comments Patient Comments Emilia has been doing her exercises, they are going well , no pelvic floor heaviness. PT-OP-I Pelvic Floor Start: 07/02/21 10:45 Freq: Status: Active Protocol: Document 07/03/21 07:30 AMB (Rec: 07/03/21 09:16 AMB [email or web address]) Pelvic Floor Assessment Urine Pelvic Floor Surgery No Urinary Symptoms Falling Out Feeling/Heavy Bowel Other Bowel Symptoms denies constipation Prolapse Cystocele Grade 2 Rectocele Grade 1 Perineal Descent Resting Present Bearing Present Contraction Ability Voluntary Contraction Moderate Voluntary Relaxation Moderate Manual Muscle Testing Left 3 Manual Muscle Testing Right 3 Manual Muscle Testing Anterior 2 Manual Muscle Testing Posterior 3 Muscle Endurance (Seconds) 8 Number of Quick Contractions In 10 4 Seconds Comments Pelvic Floor Comments cues for levator PT-OP-Q Treatments Start: 07/02/21 10:45 Freq: Status: Active Protocol: Document 07/22/21 10:20 AMB (Rec: 07/22/21 10:28 AMB [email or web address]) Gym Equipment Shuttle Recovery plyos Details 25# double leg and single leg Reps/Time 5 min Shuttle Rebound 1 Comments double leg jumps Therapeutic Exercises Standing Exercises 1 Standing Exercise Name lunges- lateral Other Exercises 1 Other Exercise Name bird dog Reps/Minutes 2x10 PT-OP-T Assessment and Plan Start: 07/02/21 10:45 Freq: Status: Active Protocol: Document 07/22/21 10:20 AMB (Rec: 07/22/21 10:28 AMB [email or web address]) Physical Therapy Assessment Assessment Summary Assessment Emilia did well with exercise today, continues to need to be mindful and feel fatigue in her abdominal muscles quickly, but otherwise is doing well. Physical Therapy Plan Next Visit Focus/Plan Next Note Type Treatment Note Next Visit Plan Emilia is going to try a run walk and see how it goes, preferably on trail or track.
--- NOTE | 2021-07-30 11:06 | PT.OTN ---
Current Diagnoses Other specified disorders of muscle (07/30/21) Physical Therapy Treatment Note PT-OP-A Visit Information Start: 07/02/21 10:45 Freq: Status: Active Protocol: Document 07/30/21 07:30 AMB (Rec: 07/30/21 08:16 AMB [id number]) Out-Patient Physical Therapy Visit Information Visit Information Visit Type Treatment Note Visit Start Time 07:30 Visit Stop Time 08:15 Total Visit Minutes 45 Visit Number 4 PT-OP-B Current Condition Start: 07/02/21 10:45 Freq: Status: Active Protocol: Document 07/03/21 07:30 AMB (Rec: 07/03/21 09:16 AMB [email or web address]) Current Condition History of Current Condition Onset Date 8 months ago Current Complaints Pelvic heaviness History of Current Condition Emilia is , who is well known to this therapist. She was doing well, but then one month ago ran down hill in a sprint after her dog who got off the leash. She felt pain and heaviness like something was coming out of her vagina. The next day she played pickleball and the heaviness increased. Since then she has been afraid to exercise due to the feeling of continued discomfort. Discomfort with intercourse. Has been trying to do quick flicks and long holds 2x/day. Current Functional Impairments (Reported) Functional Limitations- ADL's limited in exercise due to prolapse PT-OP-C Subjective Start: 07/02/21 10:45 Freq: Status: Active Protocol: Document 07/30/21 07:30 AMB (Rec: 07/30/21 08:16 AMB [id number]) OP-PT Subjective Patient Comments Patient Comments Did not get a chance to go on a run yet, but did do a little run walk with the stroller. PT-OP-I Pelvic Floor Start: 07/02/21 10:45 Freq: Status: Active Protocol: Document 07/03/21 07:30 AMB (Rec: 07/03/21 09:16 AMB [email or web address]) Pelvic Floor Assessment Urine Pelvic Floor Surgery No Urinary Symptoms Falling Out Feeling/Heavy Bowel Other Bowel Symptoms denies constipation Prolapse Cystocele Grade 2 Rectocele Grade 1 Perineal Descent Resting Present Bearing Present Contraction Ability Voluntary Contraction Moderate Voluntary Relaxation Moderate Manual Muscle Testing Left 3 Manual Muscle Testing Right 3 Manual Muscle Testing Anterior 2 Manual Muscle Testing Posterior 3 Muscle Endurance (Seconds) 8 Number of Quick Contractions In 10 4 Seconds Comments Pelvic Floor Comments cues for levator PT-OP-Q Treatments Start: 07/02/21 10:45 Freq: Status: Active Protocol: Document 07/30/21 07:30 AMB (Rec: 07/30/21 11:06 AMB [email or web address]) Gym Equipment Shuttle Recovery plyos Details 25# double leg and single leg Reps/Time 5 min Shuttle Rebound 1 Comments double leg jumps- then hopping difficult with wide legs Therapeutic Exercises Standing Exercises 3 Standing Exercise Name sit to stand Comments with long holds 2 Standing Exercise Name gentle plyos Reps/Minutes jump rope 1 min PT-OP-T Assessment and Plan Start: 07/02/21 10:45 Freq: Status: Active Protocol: Document 07/30/21 07:30 AMB (Rec: 07/30/21 08:16 AMB [id number]) Physical Therapy Assessment Goals Two Impairment Prolapse Short Term Goal (STG) Emilia will perform a HEP that includes gentle plyometrics without pelvic pain or heaviness. STG Duration 4 weeks Immigration Services Officer Goal (LTG) Emilia will go for a run without a feeling of pelvic pain or heaviness. LTG Duration 8 weeks One Impairment Strength Short Term Goal (STG) Emilia will improve her pelvic floor strength to 4/5. STG Duration 4 weeks Immigration Services Officer Goal (LTG) Emilia will contract her pelvic floor for 10 seconds in standing to show improved pelvic floor strength. LTG Duration 8 weeks Assessment Summary Assessment Did well with gentle plyos, encouraged to try to progress run walk. Physical Therapy Plan Next Visit Focus/Plan Next Note Type Treatment Note Next Visit Plan Emilia is going to try a run walk and see how it goes, preferably on trail or track- .
--- NOTE | 2021-08-17 08:15 | PT.OTN ---
Current Diagnoses Other specified disorders of muscle (08/17/21) Physical Therapy Treatment Note PT-OP-A Visit Information Start: 07/02/21 10:45 Freq: Status: Active Protocol: Document 08/17/21 07:30 AMB (Rec: 08/17/21 08:15 AMB [id number]) Out-Patient Physical Therapy Visit Information Visit Information Visit Type Treatment Note Visit Start Time 07:30 Visit Stop Time 08:15 Total Visit Minutes 45 Visit Number 5 PT-OP-B Current Condition Start: 07/02/21 10:45 Freq: Status: Active Protocol: Document 07/03/21 07:30 AMB (Rec: 07/03/21 09:16 AMB [email or web address]) Current Condition History of Current Condition Onset Date 8 months ago Current Complaints Pelvic heaviness History of Current Condition Emilia is , who is well known to this therapist. She was doing well, but then one month ago ran down hill in a sprint after her dog who got off the leash. She felt pain and heaviness like something was coming out of her vagina. The next day she played pickleball and the heaviness increased. Since then she has been afraid to exercise due to the feeling of continued discomfort. Discomfort with intercourse. Has been trying to do quick flicks and long holds 2x/day. Current Functional Impairments (Reported) Functional Limitations- ADL's limited in exercise due to prolapse PT-OP-C Subjective Start: 07/02/21 10:45 Freq: Status: Active Protocol: Document 08/17/21 07:30 AMB (Rec: 08/17/21 08:15 AMB [id number]) OP-PT Subjective Patient Comments Patient Comments Went on a 7 minute run and that went fine. No heaviness, did hurt hip later on and so hasn't been running since then . PT-OP-I Pelvic Floor Start: 07/02/21 10:45 Freq: Status: Active Protocol: Document 07/03/21 07:30 AMB (Rec: 07/03/21 09:16 AMB [email or web address]) Pelvic Floor Assessment Urine Pelvic Floor Surgery No Urinary Symptoms Falling Out Feeling/Heavy Bowel Other Bowel Symptoms denies constipation Prolapse Cystocele Grade 2 Rectocele Grade 1 Perineal Descent Resting Present Bearing Present Contraction Ability Voluntary Contraction Moderate Voluntary Relaxation Moderate Manual Muscle Testing Left 3 Manual Muscle Testing Right 3 Manual Muscle Testing Anterior 2 Manual Muscle Testing Posterior 3 Muscle Endurance (Seconds) 8 Number of Quick Contractions In 10 4 Seconds Comments Pelvic Floor Comments cues for levator PT-OP-Q Treatments Start: 07/02/21 10:45 Freq: Status: Active Protocol: Document 08/17/21 07:30 AMB (Rec: 08/17/21 08:15 AMB [id number]) Therapeutic Exercises Supine Exercises 2 Supine Exercise Name supine biking Reps/Minutes 10 1 Supine Exercise Name quick flicks and long holds Comments with legs elevated Sitting Exercises 1 Sitting Exercise Name on ball Equipment Used 65cm Comments LAQ, march, 3# deltoid, biceps with PF Standing Exercises 4 Standing Exercise Name quick flicks Comments lunge position PT-OP-T Assessment and Plan Start: 07/02/21 10:45 Freq: Status: Active Protocol: Document 08/17/21 07:30 AMB (Rec: 08/17/21 08:15 AMB [id number]) Physical Therapy Assessment Assessment Summary Assessment Backed down today due to hip injury. Pt tolerated all exercises well. Physical Therapy Plan Next Visit Focus/Plan Next Note Type Treatment Note
--- NOTE | 2021-09-08 09:25 | PT.OTN ---
Current Diagnoses Other specified disorders of muscle (09/08/21) Physical Therapy Treatment Note PT-OP-A Visit Information Start: 07/02/21 10:45 Freq: Status: Active Protocol: Document 09/08/21 08:15 AMB (Rec: 09/08/21 09:23 AMB [id number]) Out-Patient Physical Therapy Visit Information Visit Information Visit Type Treatment Note Visit Start Time 08:15 Visit Stop Time 09:00 Total Visit Minutes 45 Visit Number 6 PT-OP-B Current Condition Start: 07/02/21 10:45 Freq: Status: Active Protocol: Document 07/03/21 07:30 AMB (Rec: 07/03/21 09:16 AMB [id number]) Current Condition History of Current Condition Onset Date 8 months ago Current Complaints Pelvic heaviness History of Current Condition Emilia is , who is well known to this therapist. She was doing well, but then one month ago ran down hill in a sprint after her dog who got off the leash. She felt pain and heaviness like something was coming out of her vagina. The next day she played pickleball and the heaviness increased. Since then she has been afraid to exercise due to the feeling of continued discomfort. Discomfort with intercourse. Has been trying to do quick flicks and long holds 2x/day. Current Functional Impairments (Reported) Functional Limitations- ADL's limited in exercise due to prolapse PT-OP-C Subjective Start: 07/02/21 10:45 Freq: Status: Active Protocol: Document 09/08/21 08:15 AMB (Rec: 09/08/21 09:25 AMB [id number]) OP-PT Subjective Patient Comments Patient Comments Emilia has gone for a run twice and has had no issues with it , still being careful. PT-OP-I Pelvic Floor Start: 07/02/21 10:45 Freq: Status: Active Protocol: Document 07/03/21 07:30 AMB (Rec: 07/03/21 09:16 AMB [id number]) Pelvic Floor Assessment Urine Pelvic Floor Surgery No Urinary Symptoms Falling Out Feeling/Heavy Bowel Other Bowel Symptoms denies constipation Prolapse Cystocele Grade 2 Rectocele Grade 1 Perineal Descent Resting Present Bearing Present Contraction Ability Voluntary Contraction Moderate Voluntary Relaxation Moderate Manual Muscle Testing Left 3 Manual Muscle Testing Right 3 Manual Muscle Testing Anterior 2 Manual Muscle Testing Posterior 3 Muscle Endurance (Seconds) 8 Number of Quick Contractions In 10 4 Seconds Comments Pelvic Floor Comments cues for levator PT-OP-Q Treatments Start: 07/02/21 10:45 Freq: Status: Active Protocol: Document 09/08/21 08:15 AMB (Rec: 09/08/21 09:23 AMB [id number]) Gym Equipment Shuttle Rebound 1 Comments double leg jumps- then hopping Therapeutic Exercises Standing Exercises 2 Standing Exercise Name gentle plyos Reps/Minutes 10 Comments agility ladder PT-OP-T Assessment and Plan Start: 07/02/21 10:45 Freq: Status: Active Protocol: Document 09/08/21 08:15 AMB (Rec: 09/08/21 09:23 AMB [id number]) Physical Therapy Assessment Goals Two Impairment Prolapse Short Term Goal (STG) Emilia will perform a HEP that includes gentle plyometrics without pelvic pain or heaviness. STG Duration MET [facility] Goal (LTG) Emilia will go for a run without a feeling of pelvic pain or heaviness. LTG Duration MET One Impairment Strength Short Term Goal (STG) Emilia will improve her pelvic floor strength to 4/5. STG Duration MET [facility] Goal (LTG) Emilia will contract her pelvic floor for 10 seconds in standing to show improved pelvic floor strength. LTG Duration MET Assessment Summary Assessment Emilia did well with plyos. Extensive time spent discussing how to progress exercises safely to make running longer distances a reality. Pt is running 3/4 miles currently, and should be able to progress independently at this time. Discussed progression of frequency, intensity, duration . Physical Therapy Plan Discharge Physical Therapy Discharge Reasons Goals Met
== END 2021-09-29 08:31 ==
LOC: PHYS 08:15
PROVIDERS: Family Provider Registered Nurse Diabetes Educator; PCP Registered Nurse Diabetes Educator; Referring Provider Family Medicine; Visit Provider Family Medicine
DX: M62.89 Other specified disorders of muscle (principal)
CPT/HCPCS: 97110; 97161